=== PATIENT | male | born 1950 | race Asian ===

== ENCOUNTER 2024-02-06 09:03 | Emergency (ER) | payer OTHER ==
--- NOTE | 2024-02-06 09:50 | RAD REPORT ---
EXAM DESCRIPTION: CT - Thoracic Spine W/o Cont - 02/06/2024 9:26 am CLINICAL HISTORY: Bilateral upper extremity weakness fall COMPARISON: Head C Spine Mpr Wo Con dated 02/06/2024; Spine Lumbar Wo Con dated 02/06/2024 TECHNIQUE: Axial noncontrast CT imaging of the thoracic spine was performed with coronal and sagitta l re-formatted images. All CT scans are performed using dose optimization technique as appropriate and may include automated exposure control or mA/KV adjustment according to patient size. FINDINGS: No acute thoracic spine fracture seen. No aggressive marrow pattern or malalignment. Paraspinal tissues are normal in thickness. No paraspinal abscess or hematoma seen. Intervertebral disc disease assessment is inherently limited by CT. Within these limitations, no high -grade canal stenosis suspected. Mild multilevel degenerative changes with endplate spurring and ana dging anterior osteophytes. Up to mild multilevel neural foraminal narrowing. No central canal stenos is. IMPRESSION: No acute thoracic spine fracture or subluxation. Mild multilevel degenerative changes as above.
--- NOTE | 2024-02-06 10:07 | RAD REPORT ---
EXAM DESCRIPTION: CT - CTHCSPWOC - 02/06/2024 9:23 am CLINICAL HISTORY: Trauma, head and neck injury. fall COMPARISON: Thoracic Spine W/o Cont dated 02/06/2024 TECHNIQUE: Axial thin cut noncontrast CT images of the head were obtained. Axial thin cut noncontrast CT images of the cervical spine were obtained. Multiplanar reformatted images were generated and reviewed. All CT scans are performed using dose optimization technique as appropriate and may include automated exposure control or mA/KV adjustment according to patient size. FINDINGS: CT HEAD WITHOUT CONTRAST: No acute hemorrhage, hydrocephalus or extra-axial collection is identified.No areas of brain edema or midline shift. The paranasal sinuses and mastoids are clear.The calvarium is intact. Mild scalp swelling and small hematoma at the vertex. CT CERVICAL SPINE WITHOUT CONTRAST: No fracture or subluxation. Questionable cortical irregularity at the tip of the right C7 transverse process, favored to represent a vascular channel rather than a nondisplaced chip fracture. Up to mod erate degenerative changes with disc height loss and right neural foraminal narrowing at C5-6. No pre vertebral soft tissues swelling is identified. IMPRESSION: Scalp swelling and possible small hematoma at the vertex. No other acute traumatic intracranial or cervical spine findings. Other incidental findings as above.
--- NOTE | 2024-02-06 10:09 | RAD REPORT ---
EXAM DESCRIPTION: CT - Spine Lumbar Wo Con - 02/06/2024 9:27 am CLINICAL HISTORY: fall COMPARISON: No comparisons TECHNIQUE: Axial noncontrast CT imaging of the lumbar spine was performed with coronal and sagittal re-formatted images. All CT scans are performed using dose optimization technique as appropriate and may include automated exposure control or mA/KV adjustment according to patient size. FINDINGS: No acute lumbar spine fracture seen. No aggressive marrow pattern or malalignment. Paraspinal tissues are normal in thickness. No paraspinal abscess or hematoma seen. Intervertebral disc disease assessment is inherently limited by CT. Within these limitations, no high -grade canal stenosis suspected. Disc osteophyte complex formation at L1-2. Disc height loss with di sc vacuum phenomenon on the left at L3-4. Other mild multilevel degenerative changes contributing to mild neural foraminal narrowing at L1-2 worse on the left. No bony central canal stenosis appreciated . IMPRESSION: No acute fracture or subluxation. Mild multilevel degenerative changes as above. Please Consider MRI follow-up for assessment of disc d isease or neural impingement if clinically indicated.
[2024-02-06 10:22] LABS: Absolute Eosinophils 0.1 K/uL (0-0.5); Absolute Monocytes 0.5 K/uL (0.1-1.3); Absolute Neutrophil 8.2 K/uL (1.8-8.0); Basophils % 0.3 % (0-1.3); Eosinophils % 1.4 % (0-4.4); Hematocrit 39.4 % (39.6-49.0); Hemoglobin 12.9 g/dL (13.6-17.9); Lymphocytes % 9.9 % (15.3-44.8); MCH 26.3 pg (27.0-35.0); MCHC 32.7 g/dL (32.0-36.0); MCV 80.4 fL (80-100); Monocytes % 5.2 % (3.3-12.3); Neutrophils % 83.2 % (41.7-73.7); Nucleated Red Blood Cells % 0.1 % (0-0); Platelets 341 thou/uL (152-406); RBC Red Blood Cell Count 4.91 M/uL (4.33-5.43); Red Cell Distribution Width 16.1 % (12.1-15.2)
[2024-02-06 10:26] LABS: PT Prothrombin Time 12.7 SECONDS (9.5-12.5); Protime INR 1.16
[2024-02-06 10:44] LABS: Anion Gap 9.5 mEq/L (5.0-15.0); Potassium 3.5 mEq/L (3.5-5.1)
[2024-02-06 10:45] LABS: Troponin High Sensitivity 271.1 pg/mL (<58.9)
[2024-02-06] MEDS ORDERED: FENTANYL CITR 100 MCG/2 ML ONE (10:47)
[2024-02-06] MEDS ORDERED: ASPIRIN 81 MG CHEWABLE TABLET ONE (11:16)
--- NOTE | 2024-02-06 11:33 | RAD REPORT ---
EXAM DESCRIPTION: RADChest Single View02/06/2024 10:05 am CLINICAL HISTORY: fall COMPARISON: Thoracic Spine W/o Cont dated 02/06/2024; Pelvis dated 02/06/2024 TECHNIQUE: Portable AP view of the chest. FINDINGS: The lungs are clear. No pneumothorax or effusion. The cardiomediastinal contours are unre markable. IMPRESSION: No acute cardiopulmonary process.
[2024-02-06] MEDS ORDERED: ONDANSETRON 4 MG/2 ML VIAL ONE (11:35)
--- NOTE | 2024-02-06 12:15 | RAD REPORT ---
EXAM DESCRIPTION: MRI - Brain Wo Cont - 02/06/2024 11:26 am CLINICAL HISTORY: BL UE weakness, trauma COMPARISON: Head CT and CT angiogram of the same day TECHNIQUE: Multiplanar multisequence MRI of the brain performed without IV contrast. FINDINGS: No evidence of acute infarct or other diffusion signal abnormality. No evidence of acute intracranial hemorrhage or abnormal extra-axial fluid collections. Mild diffuse parenchymal volume loss. Ventricular caliber otherwise within normal for age. Midline st ructures are unremarkable. Subtle periventricular and deep white matter T2/FLAIR hyperintensities, nonspecific, but suggestive o f chronic small vessel ischemic changes. No mass effect or midline shift. Major vascular flow voids are preserved. Mastoid air cells and paranasal sinuses are clear. IMPRESSION: No acute intracranial process. No evidence of ventriculomegaly or mass effect.
--- NOTE | 2024-02-06 13:03 | RAD REPORT ---
EXAM DESCRIPTION: MRI - C Spine Wo Cont - 02/06/2024 11:26 am CLINICAL HISTORY: Bilateral upper extremity weakness. Trauma COMPARISON: CT cervical spine of the same day. TECHNIQUE: Multiplanar multisequence MRI of the cervical spine, obtained without IV contrast. FINDINGS: Cervical vertebral bodies are normal in height. No findings to suggest acute subluxation, although minimal spondylolisthesis is present at multiple levels, likely due to endplate and facet re modeling. No suspicious marrow edema or marrow replacing process. Mild prevertebral edema opposite C3 -C5. Cerebellar tonsils and mid-line skull base show no suspicious finding. No significant finding at the C1 and C2 levels. C2-3 level: Small central disc bulge mildly indenting the ventral CSF space. No significant central c anal stenosis or foraminal narrowing. . C3-4 level: Left central disc extrusion effacing the ventral aspect of the cord. Ligamentum flavum bu ckling. Findings contribute to moderate central canal stenosis. Bilateral uncovertebral joint spurrin g contributes to mild to moderate neural foraminal narrowing worse on the left. C4-5 level: Broad-based posterior disc bulge with small superimposed disc protrusion. No central rachid l stenosis. Mild bilateral neural foraminal narrowing. C5-6 level: Moderate disc height loss with circumferential disc osteophyte complex. A small superimpo sed caudally migrated disc extrusion is suspected. Overall moderate to severe central canal stenosis, uncovertebral joint spurring and ligamentum flavum buckling also contribute to the findings. Left mo derate to severe and right severe neural foraminal narrowing. C6-7 level: Cranially migrated central disc extrusion. Ligamentum flavum buckling. Findings contribut e to severe central canal stenosis. Bilateral moderate to severe neural foraminal narrowing. C7-T1 level: Small central disc protrusion. No significant central canal stenosis or foraminal narrow ing. Cervical cord shows no volume loss. Mild central increased T2 signal opposite C3-4 and opposite C6 barrie dy. IMPRESSION: Advanced spondylotic changes, contributing to severe central canal stenosis at C6-7, mod erate to severe central canal stenosis at C5-6, and moderate central canal stenosis at C3-4. A crania lly migrated central disc extrusion at C6-7 maybe of acute nature. Mild prevertebral edema opposite C3-C5, may suggest anterior longitudinal ligament sprain. Mildly increased central cord signal opposite C3-4 and opposite vertebral body of C6, favoring chroni c myelopathy, although possibility of acute or subacute compression cannot be entirely excluded. No f indings to suggest a cord hematoma. Variable degrees of neural foraminal narrowing, most pronounced at C5-6 and C6-7 bilaterally. The findings were communicated to Cristofer Mendosa on 02/06/2024 at 12:59 hours.
[2024-02-06] MEDS ORDERED: dexAMETHasone 10 MG/ML VIAL ONE (13:23)
--- NOTE | 2024-02-06 14:10 | EKG ---
Test Date: 2024-02-06 Test Time: 12:10:25 Side Stapler: PH MEASUREMENT RESULTS: Intervals: Rate: 50 PA: 206 QRSD: 144 QT: 514 QTc: 468 [place]: P: 84 PA: 206 QRS: 25 T: 87 INTERPRETIVE STATEMENTS: Sinus bradycardia Left bundle branch block Abnormal ECG Compared to ECG 02/06/2024 09:33:11 First degree AV block no longer present Electronically Signed On 02-06-24 14:10:13 CDT by Luis Downs
--- NOTE | 2024-02-06 14:12 | EKG ---
Test Date: 2024-02-06 Test Time: 09:33:11 Firmware Architect: MAXIMO MEASUREMENT RESULTS: Intervals: Rate: 48 ME: 220 QRSD: 156 QT: 508 QTc: 453 [place]: P: 20 ME: 220 QRS: 24 T: 70 INTERPRETIVE STATEMENTS: Sinus bradycardia with 1st degree AV block Left bundle branch block Abnormal ECG No previous ECG available for comparison Electronically Signed On 02-06-24 14:10:29 CDT by Luis Downs
--- NOTE | 2024-02-06 14:38 | RAD REPORT ---
EXAM DESCRIPTION: RAD - Pelvis - 02/06/2024 10:05 am CLINICAL HISTORY: fall COMPARISON: No comparisons TECHNIQUE: Single AP view of the pelvis. FINDINGS: The visualized pelvic ring is intact. No suspicious osseous lesions. Mild bilateral degene rative changes of the hip joints. Other pelvic joints are unremarkable. Visualized aspects of the abd omen and soft tissues are unremarkable. IMPRESSION: No acute osseous abnormality of the bony pelvis.
[2024-02-06 16:00] VITALS: BP 108/56; O2SAT 99
--- NOTE | 2024-02-06 18:03 | ER ---
Nurse's Notes [facility] Name: Tylor Alamo Age: 73 yrs Sex: Male : 1950 Arrival Date: 02/06/2024 Time: 09:03 Bed 6 Private MD: Diagnosis: NSTEMI;Spinal Cord Edema;Central Cord Enhancement;Bilateral Upper Extremity Weakness Presentation: 02/05 09:13 Chief complaint: EMS states: Became dizzy while taking out trash, fell into trash can, ph hit forehead, no LOC, no blood thinners, c/o shoulder and neck pain, weakness and tingling in bilateral arms and hands. Coronavirus screen: Vaccine status: Patient reports being unvaccinated. Ebola Screen: No symptoms or risks identified at this time. Initial Sepsis Screen: Does the patient meet any 2 criteria? No. Patient's initial sepsis screen is negative. Does the patient have a suspected source of infection? No. Patient's initial sepsis screen is negative. Risk Assessment: Do you want to hurt yourself or someone else? Patient reports no desire to harm self or others. Onset of symptoms was February 06, 2024. 09:13 Method Of Arrival: EMS: [facility] ph 09:13 Acuity: RICH 3 ph 09:13 Acuity: RICH 3 ph 10:20 Care prior to arrival: None. Mechanism of Injury: Fall into trashcan. Trauma event ph details: Injury occurred in the [facility], Injury occurred: at home. Injury occurred: February 06, 2024. Trauma Activation: Not Applicable Physician: ED Physician; Name: ; Notified At: ; Arrived At: Physician: General Surgeon; Name: ; Notified At: ; Arrived At: Physician: Radiology; Name: ; Notified At: ; Arrived At: Physician: Respiratory; Name: ; Notified At: ; Arrived At: Physician: Lab; Name: ; Notified At: ; Arrived At: Historical: - Allergies: :18 No Known Allergies; ph - PMHx: :18 Diabetes mellitus; Hypertensive disorder; ph - Immunization history:: Adult Immunizations unknown. - Infectious Disease History:: Denies. - Immunization history: Last tetanus immunization: - up to date. - Social history:: Smoking status: Patient reports the use of cigarette tobacco products, denies chronic smoking, but will smoke occasionally. Screenin:18 [facility] ED Fall Risk Assessment (Adult) History of falling in the last 3 months, ph including since admission Yes- single mechanical fall (1 pt) Confusion or Disorientation No (0 pts) Intoxicated or Sedated No (0 pts) Impaired Gait No (0 pts) Mobility Assist Device Used No (0 pt) Altered Elimination No (0 pt) Score/Fall Risk Level 0 - 2 = Low Risk Oriented to surroundings, Maintained a safe environment, Hourly rounding (assess needs \T\ fall precautionary measures) done. Abuse screen: Denies threats or abuse. Denies injuries from another. Nutritional screening: No deficits noted. Tuberculosis screening: No symptoms or risk factors identified. Primary Survey: 10:17 NO uncontrolled hemorrhage observed. A: The client is awake and alert. The airway is ph patent. Breathing/Chest: Spontaneous respiratory effort, equal unlabored respirations, breath sounds clear bilaterally, regular pattern, symmetrical chest rise and fall. Circulation: No external hemorrhage present. Regular and strong central pulse, skin warm/dry/normal color. Disability Pupils are equal, round, reactive to light and accommodation. Exposure/Environment: There is no evidence of uncontrolled external bleeding. Obvious injury(ies) are noted at this time: abrasion to forehead. 11:54 Reassessment Alertness and Airway: Awake and alert. The airway is patent. Breathing: ph Spontaneous respiratory effort, equal unlabored respirations, breath sounds clear bilaterally, regular pattern with symmetrical chest rise and fall. Circulation: No external hemorrhage noted. Regular and strong central pulse, skin warm/dry/normal color. Disability: Pupils Pupils are equal, round, reactive to light and accomodation. Alert. Secondary Survey: 10:17 HEENT: Head Other abrasion to forehead. ph Assessment: 10:21 General: Appears in no apparent distress. Behavior is calm, cooperative, appropriate ph for age. 11:45 Reassessment: Patient appears in no apparent distress at this time. Pt vomiting after ph returning from MRI, ERP notified, Zofran given IVP. 11:48 Pain: Complains of pain in right arm and left arm. Neuro: Level of Consciousness is ph awake, alert, obeys commands, Oriented to person, place, time, situation, Reports weakness in right arm and left arm. Cardiovascular: Capillary refill < 3 seconds in bilateral fingers Patient's skin is warm and dry. Respiratory: Airway is patent Respiratory effort is even, unlabored, Respiratory pattern is regular, symmetrical. Derm: Skin is pink, warm \T\ dry. Musculoskeletal: Circulation, motion, and sensation intact. Injury Description: Abrasion sustained to top of head and forehead. 12:11 Reassessment: Pt returned from CT, vomit x1 while in transport to ED. Pt cleaned and hb changed into clean gown. Tolerated well. remains at bedside. 12:30 Reassessment: Patient appears in no apparent distress at this time. Patient and/or hb family updated on plan of care and expected duration. Pain level reassessed. Patient is alert, oriented x 3, equal unlabored respirations, skin warm/dry/pink. 13:26 Reassessment: Patient appears in no apparent distress at this time. Patient and/or hb family updated on plan of care and expected duration. Pain level reassessed. Patient is alert, oriented x 3, equal unlabored respirations, skin warm/dry/pink. 15:17 Reassessment: Patient appears in no apparent distress at this time. Patient and/or ph family updated on plan of care and expected duration. Pain level reassessed. Patient is alert, oriented x 3, equal unlabored respirations, skin warm/dry/pink. [facility] at bedside, pt transferred to [facility]. Vital Signs: 09:13 BP 118 / 59; Pulse 50; Resp 18; Pulse Ox 98% on R/A; Weight 63.5 kg; Height 5 ft. 5 in. ph ; 11:00 ph 11:52 BP 113 / 57; Pulse 58; Resp 18; Pulse Ox 98% on R/A; ph 13:15 BP 108 / 56; Pulse 53; Resp 14; Pulse Ox 99% on R/A; Pain 0/10; hb 09:13 Body Mass Index 23.30 (63.50 kg, 165.1 cm) ph 13:15 Pain Scale: Adult hb 11:00 Pt in MRI ph Greenfield Coma Score: 10:19 Eye Response: spontaneous(4). Motor Response: obeys commands(6). Verbal Response: ph oriented(5). Total: 15. Trauma Score (Adult): 10:19 Eye Response: spontaneous(1); Verbal Response: oriented(1); Motor Response: obeys ph commands(2); Systolic BP: > 89 mm Hg(4); Respiratory Rate: 10 to 29 per min(4); [place]field Score: 15; Trauma Score: 12 13:15 Eye Response: spontaneous(1); Verbal Response: oriented(1); Motor Response: obeys hb commands(2); Systolic BP: > 89 mm Hg(4); Respiratory Rate: 10 to 29 per min(4); Kristen Score: 15; Trauma Score: 12 ED Course: 09:10 Patient arrived in ED. ec2 09:10 Cristofer Mendosa MD is Attending Physician. ec2 09:13 Josy Tapia, DAYAMI is Primary Nurse. ph 09:17 Triage completed. ph 09:18 Arm band placed on Patient placed in an exam room, on a stretcher, on pulse oximetry. ph 09:[address] via stretcher. hb 09:25 CT Head C Spine In Process Unspecified. EDMS 09:25 CT Thoracic Spine Wo Cont In Process Unspecified. EDMS 09:25 CT Lumbar Spine Wo Con In Process Unspecified. EDMS 09:35 EKG done, by ED staff, reviewed by Cristofer Mendosa MD. em1 10:07 XRAY Chest (1 view) In Process Unspecified. EDMS 10:07 Pelvis XRAY In Process Unspecified. EDMS 10:16 Basic Metabolic Panel Sent. ph 10:16 CBC with Diff Sent. ph 10:16 PT-INR Sent. ph 10:16 Troponin HS Sent. ph 10:17 Initial lab(s) drawn, by me, sent to lab. Inserted saline lock: 22 gauge in right ph wrist, using aseptic technique. 10:19 Patient has correct armband on for positive identification. Bed in low position. Call ph light in reach. Side rails up X 1. Pulse ox on. NIBP on. Door closed. Warm blanket given. 10:19 O2 via room air. ph 10:46 Notified ED physician of a critical lab result(s). Troponin 271.1. iw 11:[address] via stretcher. hb 11:25 C Spine Wo Cont In Process Unspecified. EDMS 11:25 Brain Wo Cont In Process Unspecified. EDMS 11:52 Thermoregulation: warm blanket given to patient. ph 12:19 No provider procedures requiring assistance completed. ph 13:37 initiated transfer to [facility]. bd 15:17 Patient transferred, IV remains in place. ph Administered Medications: 10:55 Drug: fentaNYL (PF) IVP 50 mcg IVP once Route: IVP; Site: right forearm; hb 11:35 Follow up: Response: No adverse reaction hb 11:47 Drug: Aspirin PO Chewable Tablet 324 mg PO once; 81 mg tablets x 4 Route: PO; ph 12:40 Follow up: Response: No adverse reaction hb 11:47 Drug: Ondansetron IVP 4 mg IVP once; over 2 minutes Route: IVP; Site: right wrist; ph 12:30 Follow up: Response: No adverse reaction hb 13:26 Drug: Decadron - Dexamethasone IVP 10 mg IVP once Route: IVP; Site: right forearm; hb 14:25 Not Given (Other Intervention Used): boostrix tdap0.5 ml IM once; as a single dose ph Medication: 13:30 VIS not applicable for this client. hb Outcome: 13:21 ER care complete, transfer ordered by . ec2 15:17 Transferred by ground EMS [facility] to [facility], [facility], Transfer form ph completed. X-rays sent w/ patient. 15:17 Condition: stable 15:17 Instructed on the need for transfer, 15:18 Patient left the ED. ph Signatures: Dispatcher [employer] Tameka Velazco Irene, RN RN Bib [facility] Josy Tapia RN RN Shasha Panda RN RN hb Corral, Edwin, MD MD ec2 Corrections: (The following items were deleted from the chart) 11:52 10:21 General: Appears in no apparent distress. Behavior is calm, cooperative, ph agitated, ph
--- NOTE | 2024-02-06 18:03 | EDPHYS ---
Physician Documentation [facility] Name: Tylor Alamo Age: 73 yrs Sex: Male : 1950 Arrival Date: 02/06/2024 Time: 09:03 Bed 6 Private MD: ED Physician Cristofer Mendosa HPI: 02/05 09:13 This 73 yrs old Male presents to ER via Unassigned with complaints of Fall Injury. ec2 09:13 Patient arrives today for evaluation of a fall injury. Was taking out his trash, ec2 subsequently had fallen into the trash, injured the top of his head, is having difficulty with pain and movement in the bilateral upper extremities. States that he feels weak in the bilateral upper extremities. Patient reports no previous baseline deficits. Reports no recent infectious symptoms.. Historical: - Allergies: 09:18 No Known Allergies; ph - PMHx: 09:18 Diabetes mellitus; Hypertensive disorder; ph - Immunization history:: Adult Immunizations unknown. - Infectious Disease History:: Denies. - Immunization history: Last tetanus immunization: - up to date. - Social history:: Smoking status: Patient reports the use of cigarette tobacco products, denies chronic smoking, but will smoke occasionally. ROS: 09:13 Constitutional: as per hpi ec2 Exam: 09:13 Constitutional: GEN: NAD Head: atraumatic Eyes: EOMI Ears: External ears are ec2 normal. CV: regular rate LUNGS: no respiratory distress ABD: non-distended SKIN: no evidence of rashes MSK: no evidence of trauma NEURO: Weakness in the bilateral upper extremities, subjective paresthesias in bilateral upper extremities. Intact strength in bilateral lower extremities. Vital Signs: 09:13 BP 118 / 59; Pulse 50; Resp 18; Pulse Ox 98% on R/A; Weight 63.5 kg; Height 5 ft. 5 in. ph ; 11:00 ph 11:52 BP 113 / 57; Pulse 58; Resp 18; Pulse Ox 98% on R/A; ph 13:15 BP 108 / 56; Pulse 53; Resp 14; Pulse Ox 99% on R/A; Pain 0/10; hb 09:13 Body Mass Index 23.30 (63.50 kg, 165.1 cm) ph 13:15 Pain Scale: Adult hb 11:00 Pt in MRI ph Kristen Coma Score: 10:19 Eye Response: spontaneous(4). Motor Response: obeys commands(6). Verbal Response: ph oriented(5). Total: 15. Trauma Score (Adult): 10:19 Eye Response: spontaneous(1); Verbal Response: oriented(1); Motor Response: obeys ph commands(2); Systolic BP: > 89 mm Hg(4); Respiratory Rate: 10 to 29 per min(4); Alfred Score: 15; Trauma Score: 12 13:15 Eye Response: spontaneous(1); Verbal Response: oriented(1); Motor Response: obeys hb commands(2); Systolic BP: > 89 mm Hg(4); Respiratory Rate: 10 to 29 per min(4); Kristen Score: 15; Trauma Score: 12 MDM: 09:10 Patient medically screened. ec2 09:13 Data reviewed: vital signs. ED course: Patient arrives today for evaluation of a head ec2 injury as well as weakness in the bilateral upper extremities. Examination remarkable for neurologic examinations as noted above. Will obtain lab work, CT imaging. Differential diagnosis includes intracranial brain bleed, C-spine injury, central cord syndrome. Doubt ischemic stroke given bilateral nature and mechanism.. 09:49 ED course: EKG independently reviewed and interpreted by me, shows normal sinus rhythm, ec2 rate of 48, left bundle branch block noted, no acute ST segment elevations, first-degree AV block noted, intervals are nonconcerning.. 10:57 ED course: . ec2 11:33 ED course: Metabolic profile shows renal dysfunction with a creatinine of 2.15 and GFR ec2 of 32, CBC is reassuring, slight anemia noted, troponin is markedly elevated to 71. Patient has these bilateral lower extremity weakness, initially considered other processes such as dissection, I spoke with radiology, no hyperdense lesions noted within the aorta to indicate dissection, no aneurysmal disease noted in the aorta. . 11:56 ED course: Chest x-ray independently reviewed and interpreted by me, shows no acute ec2 intrathoracic process.. 12:20 ED course: Repeat EKG independently reviewed and interpreted by me, shows normal sinus ec2 rhythm, rate of 50, no acute ST segment elevations, left bundle branch block noted, no actionable intervals. Appears grossly unchanged compared to initial. . 13:08 ED course: Repeat troponin increasingly elevated at 486. MRI of the C-spine shows ec2 degenerative changes, severe canal stenosis along with prevertebral edema between C3 and C5. Will give the patient Decadron, keep patient in c-collar and transfer for neurosurgery. . 13:19 ED course: Patient with rising troponin. Given full dose of aspirin. MRI does show ec2 concern for injury, specifically shows some central cord enhancement along C3-C4, also shows prevertebral edema along C3-C5. On my reassessment patient still weak in the bilateral upper extremities however seems to be improved compared to initial presentation. I will transfer the patient for neurosurgery and trauma evaluation, patient also with an NSTEMI. Given the complex nature of this, I will hold off on giving the patient anticoagulation as I do not want to potentially worsen his spinal cord pathology and cause paresis. . 13:41 ED course: Will transfer to [facility] for concern for central cord syndrome ec2 along with prevertebral swelling and NSTEMI. Patient updated regarding plan of care and agreeable.. 13:41 ED course: MDM: Differential diagnosis as documented above in ED course; All lab tests ec2 ordered and reviewed as documented above; Independent interpretation of tests: EKG as above; imaging as above; Parenteral controlled substances: Yes; History gathered from independent historian: Yes;EMS; Discuss inpatient hospitalization: Yes; I discussed the case with: ADILENE . 02/05 09:12 Order name: Basic Metabolic Panel; Complete Time: 10:47 ec2 02/05 09:12 Order name: CBC with Diff; Complete Time: 10:47 ec2 02/05 09:12 Order name: PT-INR; Complete Time: 10:47 ec2 02/05 09:12 Order name: Troponin HS; Complete Time: 10:47 ec2 02/05 11:37 Order name: Troponin High Sensitivity; Complete Time: 13:07 ec2 02/05 09:12 Order name: XRAY Chest (1 view); Complete Time: 11:55 ec2 02/05 09:12 Order name: CT Head C Spine; Complete Time: 10:47 ec2 02/05 09:12 Order name: CT Thoracic Spine Wo Cont; Complete Time: 10:47 ec2 02/05 09:12 Order name: CT Lumbar Spine Wo Con; Complete Time: 10:47 ec2 02/05 09:12 Order name: Pelvis XRAY ec2 02/05 09:32 Order name: C Spine Wo Cont; Complete Time: 13:07 EDMS 02/05 11:25 Order name: Brain Wo Cont; Complete Time: 12:26 EDMS 02/05 12:56 Order name: EKG Electrocardiogram EDMS 02/05 09:12 Order name: Cardiac monitoring; Complete Time: 10:15 ec2 02/05 09:12 Order name: EKG - Nurse/Tech; Complete Time: 09:35 ec2 02/05 09:12 Order name: IV Saline Lock; Complete Time: 10:15 ec2 02/05 09:12 Order name: Labs collected and sent; Complete Time: 10:15 ec2 02/05 09:12 Order name: O2 Per Protocol; Complete Time: 10:15 ec2 02/05 09:12 Order name: O2 Sat Monitoring; Complete Time: 10:16 ec2 02/05 11:37 Order name: EKG - Nurse/Tech; Complete Time: 12:20 ec2 02/05 11:37 Order name: Misc. Order: repeat ekg/trop; Complete Time: 12:13 ec2 02/05 13:08 Order name: C-Collar; Complete Time: 13:21 ec2 Administered Medications: 10:55 Drug: fentaNYL (PF) IVP 50 mcg IVP once Route: IVP; Site: right forearm; hb 11:35 Follow up: Response: No adverse reaction hb 11:47 Drug: Aspirin PO Chewable Tablet 324 mg PO once; 81 mg tablets x 4 Route: PO; ph 12:40 Follow up: Response: No adverse reaction hb 11:47 Drug: Ondansetron IVP 4 mg IVP once; over 2 minutes Route: IVP; Site: right wrist; ph 12:30 Follow up: Response: No adverse reaction hb 13:26 Drug: Decadron - Dexamethasone IVP 10 mg IVP once Route: IVP; Site: right forearm; hb 14:25 Not Given (Other Intervention Used): boostrix tdap0.5 ml IM once; as a single dose ph Disposition Summary: 02/06/24 13:21 Transfer Ordered Notes: Transfer Location: [facility] ec2 Reason: Higher level of care ec2 Condition: Stable ec2 Problem: new ec2 Symptoms: have improved ec2 Accepting Physician: transferring doc(02/06/24 15:18) ph Diagnosis - NSTEMI ec2 - Spinal Cord Edema ec2 - Central Cord Enhancement ec2 - Bilateral Upper Extremity Weakness ec2 Forms: - Medication Reconciliation Form ec2 - SBAR form ec2 Critical care time excluding procedures: 13:19 Critical care time: Bedside Care: 30 minutes, Consultation: 10 minutes. Total time: 40 ec2 minutes Signatures: Dispatcher [employer] Josy Reid RN RN Shasha Panda RN RN Cristofer Mendosa MD MD ec2 Corrections: (The following items were deleted from the chart) 09:12 09:12 Chest Single View+RAD.RAD.BRZ ordered. EDMS EDMS 09:12 09:12 Head C Spine MPR Wo Con+CT.RAD.BRZ ordered. EDMS EDMS 09:13 09:13 Thoracic Spine WO Cont+CT.RAD.BRZ ordered. EDMS EDMS 09:13 09:13 Spine Lumbar Wo Con+CT.RAD.BRZ ordered. EDMS EDMS 09:13 09:13 Pelvis+RAD.RAD.BRZ ordered. EDMS EDMS 09:13 09:13 Urinalysis W/Microscopic+U.LAB.BRZ ordered. EDMS EDMS 10:28 09:32 Lumbar Spine Wo Con ordered. EDMS EDMS 10:28 09:32 Thoracic Spine Wo Contr ordered. EDMS EDMS 11:25 09:32 Brain With Cont ordered. EDMS EDMS 15:18 13:21 transferring doc ec2 ph
== END 2024-02-06 15:18 | disposition short-term general hospital (02) ==
LOC: ER 09:03
DX: I21.4 Non-ST elevation (NSTEMI) myocardial infarction (principal); S14.0XXA Concussion and edema of cervical spinal cord, initial encounter; G95.89 Other specified diseases of spinal cord; W18.30XA Fall on same level, unspecified, initial encounter
CPT/HCPCS: 93005 ×2; 85025; 80048; 36415; 85610; 84484 ×2; 72131; 70450; 72125; 72128; 71045; 72170; 70551; 72141; J3010; J1100; J2405